=== PATIENT | male | born 2005 | race Caucasian/White ===

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

== ENCOUNTER 2024-01-28 13:44 | Outpatient (CLI) | payer BC, MEDICAID, SELFPAY ==
--- NOTE | 2024-01-28 14:12 | XRR_ITS ---
PROCEDURE INFORMATION: Exam: XR Right Hand Exam date and time: 01/28/2024 2:14 PM Age: 18 years old Clinical indication: Injury or trauma; Other: Jammed hand; Blunt trauma (contusions or hematomas); Injury details: Jammed right hand when doing lina; Additional info: Right hand injury TECHNIQUE: Imaging protocol: Radiologic exam of the right hand. Views: 3 or more views. COMPARISON: CR XR hand RT min 3V* [id number] 11/29/2021 2:46 PM FINDINGS: Bones/joints: There are healed fractures of the 2nd and 3rd metacarpal diaphyses. Joint alignment is normal. Joint spaces are preserved. No acute fracture. Soft tissues: There is diffuse soft tissue swelling in the 2nd finger. XR/XR hand RT min 3V* [id number] IMPRESSION: No acute osseous abnormality.
== END 2024-01-28 13:45 | disposition home or self-care (01) ==
LOC: RAD 13:48
PROVIDERS: PCP Physician Assistant; Visit Provider Registered Nurse Neonatal Intensive Care
DX: S69.91XA Unspecified injury of right wrist, hand and finger(s), initial encounter (principal); W23.0XXA Caught, crushed, jammed, or pinched between moving objects, initial encounter
CPT/HCPCS: 73130

== ENCOUNTER 2024-02-02 21:46 | Emergency (ER) | payer BC, MEDICAID, SELFPAY ==
[2024-02-02 21:57] VITALS: BP 131/91; PULSE 93; RESP 17; TEMP 36.4; O2SAT 98; BMI 27.1
--- NOTE | 2024-02-03 00:34 | XRR_ITS ---
PROCEDURE INFORMATION: Exam: XR Right Hand Exam date and time: 02/03/2024 12:39 AM Age: 18 years old Clinical indication: Fingers; Right; Finger(s); Patient HX: Patient currently on antibiotics for infection of RT thumb. Worsening pain and increased swelling now with purulent discharge. ; Additional info: Thumb infection TECHNIQUE: Imaging protocol: Radiologic exam of the right hand. Views: 3 or more views. COMPARISON: CR XR hand RT min 3V* [id number] 01/28/2024 2:14 PM FINDINGS: Bones/joints: There is loss cortical definition of the distal tuft of the thumb, at the palmar medial aspect, which may represent osteomyelitis. Correlation with contrast-enhanced MRI may be helpful. Sonographic assessment may also be helpful if dedicated musculoskeletal ultrasound service is available. Soft tissues: Mild soft tissue swelling around the thumb with no soft tissue gas. Other findings: Three views submitted. Lateral view of the digits is limited due to overlapping. XR/XR hand RT min 3V* [id number] IMPRESSION: 1. Soft tissue swelling with no soft tissue gas. 2. Loss of cortical definition of the distal tuft of the thumb. Findings may represent osteomyelitis. MRI correlation may be helpful. See discussion above.
--- NOTE | 2024-02-03 00:35 | ED_ITS ---
Documented by User: EUNICE Colvin 02/03/24 01:19 HPI - Skin/Abscess/Foreign Bdy General: Chief complaint: Skin/Abscess/Foreign Body Stated complaint: Right thumb injury Time Seen by Provider: 02/03/24 00:14 Source: patient Mode of arrival: ambulatory Limitations: no limitations History of Present Illness: Patient is a 18-year-old male presents to the emergency department planing of right thumb infection/pain onset greater than a week. Initial injury occurred while patient was woodworking and he hit his right thumb against a piece of wood. He was seen at a walk-in 6 days ago for signs of an infection and was treated with Bactrim. He also had a negative x-ray at that time. He states he has been taking the Bactrim as prescribed, however he has also been soaking it in Epsom salt as well as coating and hydrogen peroxide. He notes that he has not kept it dry for very long at all, and now is reporting increased swelling, pressure, drainage, and pain. He denies any fever, breathing difficulties, chest pains, or any other symptoms. He is up-to-date on his tetanus. Onset (ago): week(s) Tetanus up to date: yes Location: R hand Severity: moderate Pain Consistency: constant Relieving factors: none Context: recent antibiotic Associated symptoms: Reports no associated symptoms; Deny chills, fever(s), nausea or vomiting Treatments prior to arrival: antibiotic Review of Systems General: Reports: 10 or more systems reviewed and unremarkable except in HPI and below Const: Denies: fever(s), chills or fatigue Eyes: Denies: change in vision ENMT: Denies: throat pain, ear or mastoid pain or nasal discharge Card: Denies: chest pain, palpitations, swelling of feet/ankles or lightheadedness Resp: Denies: dyspnea, productive cough or wheezing GI: Denies: abdominal pain, nausea, vomiting, diarrhea or constipation : Denies: flank pain, difficulty urinating, dysuria or urinary frequency Musc: Reports: extremity pain (Right thumb) and extremity swelling (Right thumb); Denies: neck pain, back pain or joint pain Skin/Breast: Reports: erythema (Right thumb); Denies: rash Neuro: Denies: headache(s), numbness in extremities or weakness in extremities PFSH ED PFSH: Medical History (Updated 02/03/24 @ 01:13 by EUNICE Colvin) Nondisp fracture of fifth right metatarsal bone with routine healing Family History Other Diabetes Denies family history of CAD (coronary artery disease) Clotting disorder Dementia Hyperlipidemia Psychiatric illness Chronic kidney disease (CKD) Suicide Anesthesia complication Bleeding disorder Family history of premature coronary artery disease Lung disease Cancer Hypertension Stroke Social History Second hand smoke exposure: No Alcohol intake: never Substance/Drug Use: never Highest education level completed: 10th Grade Physical Exam Const: COMMON NORMALS: no acute distress, patient oriented x3 and no limitations GENERAL APPEARANCE: cooperative, comfortable and well developed ORIENTATION/CONSCIOUSNESS: Yes awake, Yes oriented to person, Yes oriented to place and Yes oriented to time HENMT: COMMON NORMALS: normocephalic, atraumatic and hearing grossly normal bilaterally HEAD & SCALP: normocephalic and atraumatic Eye: COMMON NORMALS: Equal, round and reactive pupils present, EOMs intact bilaterally and conjunctivae normal CONJUNCTIVA: Yes conjunctivae normal PUPIL: Yes Equal, round and reactive pupils present Neck/C-Spine: COMMON NORMALS: full ROM and supple Resp: COMMON NORMALS: normal respiratory effort, No retractions and No use of accessory muscles Extremity: COMMON NORMALS: full ROM NARRATIVE EXTREMITY EXAM: The distal right thumb is moderately edematous with diffuse erythema noted. The thumb is coated in dried ointment. It is significantly tender to the touch, and there is an area of purulent drainage noted just to the right of the nail. He has full range of motion of the thumb, though with pain. At the center of the thumb pad, there is a self-inflicted puncture wound. Neuro: COMMON NORMALS: patient oriented x3, moves all extremities, no focal motor deficits and no sensory deficits noted SENSORIUM/ORIENTATION: Yes oriented to person, Yes oriented to place and Yes oriented to time Psych: COMMON NORMALS: mental status grossly normal and Normal thought process present THOUGHT PROCESS: Normal thought process present Skin: COMMON NORMALS: no rashes or lesions noted GENERAL SKIN EXAM: no rashes or lesions noted Course Vital Signs: Vital signs: Vital Signs Temperature 97.6 F 02/02/24 21:57 Pulse Rate 93 02/02/24 21:57 Respiratory Rate 17 02/02/24 21:57 Blood Pressure 131/91 02/02/24 21:57 Pulse Oximetry 98 02/02/24 21:57 Oxygen Delivery Me thod Room Air 02/02/24 21:57 MDM - Skin/Abscess/Foreign Bdy Medicial Decision Making This patient was seen and evaluated in the emergency department today due to continuing infection to the right thumb. Initially seen at urgent care, he notes worsening of his swelling, redness, and pain despite treatment with Bactr im. He has been exhibiting an appropriate wound care however, as he has been keeping it lubricated and soaked with Epsom salt baths and hydrogen peroxide. He also poked a hole in the finger pad to try to relieve some pressure, where his pain is now primarily at. His vitals are normal, and he is afebrile. Examination revealed a moderately swollen right thumb with obvious signs of infection but no obvious fluctuance or drainable abscess. The self-inflicted puncture wound is protruding tissue, and x-ray of the right thumb showed signs of osteomyelitis at the distal tuft. Patient will be treated as an osteomyelitis and started on p.o. Levaquin with ARPAN follow-up to wound care and orthopedics. Return precautions are given. Lab Data Radiology Impressions Hand X-Ray 02/03/24 00:34 IMPRESSION: 1. Soft tissue swelling with no soft tissue gas. 2. Loss of cortical definition of the distal tuft of the thumb. Findings may represent osteomyelitis. MRI correlation may be helpful. See discussion above. All radiology interpretation(s) finalized by discharge Discharge Plan Discharge Patient Disposition: Home Clinical Impression: Osteomyelitis Qualifiers: Osteomyelitis type: unspecified type Osteomyelitis location: hand Laterality: right Qualified Code(s): M86.9 - Osteomyelitis, unspecified Condition: Stable Prescriptions: New levofloxacin 500 mg tablet 500 mg PO DAILY 14 Days Qty: 14 0RF No Action (DME) Fast Form Cock Up Splint See Rx Instructions .Route .MEDSUPPLY Qty: 1 0RF Rx Instructions: As directed sulfamethoxazole-trimethoprim [Bactrim DS] 800-160 mg tablet 1 tab PO BID 7 Days Qty: 14 0RF Discharge Orders: Discharge ED (Routine); Ordered 02/03/24 Ordered By: Saran Rodriguez Referrals: Halina Gregory PA [Primary Care Provider] - Discharge Diet: Usual diet Discharge Activity: Limit activity as instructed Patient Instructions: Osteomyelitis (ED) Activity Restrictions/Additional Instructions: Levaquin as prescribed. Follow-up with wound care and orthopedics as soon as possible. Return with any new or concerning symptoms. Stand Alone Forms: Work/School Release Coding Level of Care Code ED Optomechanical Engineer for Chg Fwd Documented by User: Daryl Finley DO 02/04/24 06:48 HPI - Skin/Abscess/Foreign Bdy General: Chief complaint: Skin/Abscess/Foreign Body Stated complaint: Right thumb injury Time Seen by Provider: 02/03/24 00:14 PFSH ED PFSH: Medical History (Updated 02/03/24 @ 01:13 by EUNICE Colvin) Nondisp fracture of fifth right metatarsal bone with routine healing Family History Other Diabetes Denies family history of CAD (coronary artery disease) Clotting disorder Dementia Hyperlipidemia Psychiatric illness Chronic kidney disease (CKD) Suicide Anesthesia complication Bleeding disorder Family history of premature coronary artery disease Lung disease Cancer Hypertension Stroke Social History Second hand smoke exposure: No Alcohol intake: never Substance/Drug Use: never Highest education level completed: 10th Grade Course Vital Signs: Vital signs: Vital Signs Temperature 97.6 F 02/02/24 21:57 Pulse Rate 93 02/02/24 21:57 Respiratory Rate 17 02/02/24 21:57 Blood Pressure 131/91 02/02/24 21:57 Pulse Oximetry 98 02/02/24 21:57 Oxygen Delivery Me thod Room Air 02/02/24 21:57 MDM - Skin/Abscess/Foreign Bdy Medicial Decision Making This patient was seen and evaluated in the emergency department today due to continuing infection to the right thumb. Initially seen at urgent care, he notes worsening of his swelling, redness, and pain despite treatment with Bactrim. He has been exhibiting an appropriate wound care however, as he has been keeping it lubricated and soaked with Epsom salt baths and hydrogen peroxide. He also poked a hole in the finger pad to try to relieve some pressure, where his pain is now primarily at. His vitals are normal, and he is afebrile. Examination revealed a moderately swollen right thumb with obvious signs of infection but no obvious fluctuance or drainable abscess. The self- inflicted puncture wound is protruding tissue, and x-ray of the right thumb showed signs of osteomyelitis at the distal tuft. Patient will be treated as an osteomyelitis and started on p.o. Levaquin with ARPAN follow-up to wound care and orthopedics. Return precautions are given. Chart reviewed Lab Data Radiology Impressions Hand X-Ray 02/03/24 00:34 IMPRESSION: 1. Soft tissue swelling with no soft tissue gas. 2. Loss of cortical definition of the distal tuft of the thumb. Findings may represent osteomyelitis. MRI correlation may be helpful. See discussion above. Discharge Plan Discharge Patient Disposition: Home Clinical Impression: Osteomyelitis Qualifiers: Osteomyelitis type: unspecified type Osteomyelitis location: hand Laterality: right Qualified Code(s): M86.9 - Osteomyelitis, unspecified Condition: Stable Prescriptions: New levofloxacin 500 mg tablet 500 mg PO DAILY 14 Days Qty: 14 0RF No Action (DME) Fast Form Cock Up Splint See Rx Instructions .Route .MEDSUPPLY Qty: 1 0RF Rx Instructions: As directed sulfamethoxazole-trimethoprim [Bactrim DS] 800-160 mg tablet 1 tab PO BID 7 Days Qty: 14 0RF Discharge Orders: Discharge ED (Routine); Ordered 02/03/24 Ordered By: Saran Rodriguez Referrals: Halina Gregory PA [Primary Care Provider] - Discharge Diet: Usual diet Discharge Activity: Limit activity as instructed Patient Instructions: Osteomyelitis (ED) Activity Restrictions/Additional Instructions: Levaquin as prescribed. Follow-up with wound care and orthopedics as soon as possible. Return with any new or concerning symptoms. Stand Alone Forms: Work/School Release Coding Level of Care Code ED Optomechanical Engineer for Kasey Martinez
[2024-02-03] MEDS: levoFLOXacin 500 mg Tablet PO ×2 (01:28→01:30)
--- NOTE | 2024-02-04 07:23 | DCPLANNER ---
Message sent to Wound care and Ortho for ARPAN follow up
== END 2024-02-03 01:36 | disposition home or self-care (01) ==
PROVIDERS: Emergency Provider Physician Assistant; PCP Physician Assistant
DX: M86.8X4 Other osteomyelitis, hand (principal)
CPT/HCPCS: 73130; 99283

== ENCOUNTER 2024-02-06 12:20 | Day surgery (SDC) | payer BC, MEDICAID, SELFPAY ==
[2024-02-06] VITALS (11 sets, daily range): BP systolic 107–147; BP diastolic 48–90; PULSE 52–94; RESP 16–20; TEMP 36.1–36.3; O2SAT 96–100; BMI 26.7
[2024-02-06] MEDS: scopolamine 1.5 Patch 1 PATCH TRANSDERMA (12:45)
[2024-02-06] MEDS: sodium chloride 0.9% 1,000 ML 30 ML IV (12:56)
[2024-02-06] MEDS: acetaminophen 1,000 MG/100 ML PIGGYBACK 400 MG IV (12:58)
--- NOTE | 2024-02-06 12:58 | ANES.PREANE2 ---
Pre-Anesthetic Assessment Height/Weight: Height 1.83 m Weight 89.358 kg Temp Pulse Resp BP Pulse Ox O2 Del Method 97.4 F L 94 18 147/82 99 Room Air 02/06/24 12:38 02/06/24 12:38 02/06/24 12:38 02/06/24 12:45 02/06/24 12:38 02/06/24 12:40 Operation Date: 02/06/24 14:05 Proposed Procedures p Incision & Drainage Upper Extremity(Right) - Santana Britt DO Familial anesthetic complications: None Was Beta Corine taken within 24 hours: N/A Was Clonidine taken within 24 hours: N/A Last intake: Intake Last Liquid Date 02/05/24 Last Liquid Time 23:00 Last Solid Date 02/05/24 Last Solid Time 22:00 Social No alcohol and No tobacco former smoker Exam alert, oriented x 3, clear to auscultation bilaterally and regular rate & rhythm Airway Mallampati: Class II Dentition: chipped and full Anesthetic Plan ASA status: 1 Anesthesia: Choice Risk of > 500 ml blood loss (7ml/kg in children): No Medications/Allergies Home Medications Medication Instructions Recorded Confirmed Last Taken Type Fast Form Cock Up Splint #1 ea 10/04/21 02/05/24 Unknown Rx levofloxacin 500 mg tablet 500 mg PO DAILY 2 weeks #14 tabs 02/03/24 02/05/24 02/05/24 Rx Allergies Allergy/AdvReac Type Severity Reaction Status Date / Time No Known Allergies Allergy Verified 02/05/24 16:51 Current Medications Generic Name Dose Route Start Last Admin Trade Name Freq PRN Reason Stop Dose Admin Sodium Chloride 1,000 mls @ 30 mls/hr 02/06/24 12:30 02/06/24 12:56 Sodium Chloride 0.9% IV 02/07/24 12:29 30 mls/hr .Q24H TAWANDA Administration PFSH Anesthesia Medical History (Updated 02/05/24 @ 14:54 by Santana Britt DO) Nondisp fracture of fifth right metatarsal bone with routine healing Family History Other Diabetes Denies family history of CAD (coronary artery disease) Clotting disorder Dementia Hyperlipidemia Psychiatric illness Chronic kidney disease (CKD) Suicide Anesthesia complication Bleeding disorder Family history of premature coronary artery disease Lung disease Cancer Hypertension Stroke Social History (Updated 02/05/24 @ 14:52 by Carmencita Pascual LPN) Smoking and tobacco/nicotine status: former use of tobacco/nicotine Second hand smoke exposure: No Alcohol intake: never Substance/Drug Use: never Highest education level completed: 10th Grade Data Anesthesia Cardiac Studies: No Data to Display
[2024-02-06] MEDS: ketorolac 30 mg/mL INJ IVP (13:02)
--- NOTE | 2024-02-06 14:32 | W.PM.OPSUD ---
Surgery/Procedure H&P Update DATE OF PROCEDURE: February 06, 2024 DATE H&P PERFORMED: 02/05/24 H&P UPDATE INFORMATION: I have reviewed H&P completed within last 30 days, I have examined patient prior to procedure and No changes to prior documentation CHANGES TO PREVIOUS DOCUMENTATION: Right thumb infection (felon with paronychia) PREOP DIAGNOSIS: Right thumb infection felon and paronychia PRIMARY INDICATION FOR PROCEDURE: Right thumb infection (felon and paronychia) PLANNED PROCEDURE: Operation Date: 02/06/24 14:05 Proposed Procedures p Incision & Drainage Upper Extremity(Right) - Santana Britt DO
[2024-02-06] MEDS: ceFAZolin 2,000 MG in sodium chloride 0.9% (plus) 50 ML 100 MG IV (14:42)
[2024-02-06] MEDS: ROPivacaine 0.5% SDV 30 mL 50 MG INJECTION (15:25)
[2024-02-06] MEDS: lidocaine 2% INJ 20 mL 10 ML INJECTION (15:25)
--- NOTE | 2024-02-06 15:50 | P.BOP_ITS ---
Date of Procedure: [February 06, 2024] Surgeon: [Dr. Britt DO] Electrical Assembly Supervisor(s): [Kane Britt PA-C] Procedure(s) performed: [Right thumb incision, irrigation and debridement, [wound 3 cm x 2 cm x 1 cm]] Findings of the procedure(s): [Right thumb infection (felon and paronychia)] Estimated blood loss: [2 ml] Specimen(s) removed: [wound cultures obtained and sent to lab] Post-operative diagnosis: [Right thumb infection (felon and paronychia)]
--- NOTE | 2024-02-06 15:56 | PM.PACU ---
PACU note Narrative: Patient is a 18-year-old male just underwent a right thumb I&D. Patient transferred to PACU in stable condition. Pain is well controlled. Dressing on hand is dry and in place. Patient's fingers are warm and well-perfused. Patient can wiggle fingers. normal cap refill under 2 seconds. Patient has normal elbow range of motion. sensation to hand intact. Exam: awake Disposition: discharged
--- NOTE | 2024-02-06 15:59 | PM.OP ---
Operative Report Date of procedure: February 06, 2024 Pre-op diagnosis: Right thumb felon and paronychia Post-op diagnosis: Same Procedure done: Right thumb incision, irrigation and debridement, [wound 3 cm x 2 cm x 1 cm Specimens removed/disposition: Cultures taken of abscess aerobic and anaerobic of the right thumb finger pulp Surgeon: Santana Britt DO Machine Clothing Worker: Kane Britt PA-C: EUNICE was necessary for assistance in this case with hand positioning to execute the procedure, retraction and protection of neurovascular structures as well as to assist with wound closure and dressing application. Anesthesia: MAC and Local Estimated blood loss: 2mL 35min finger turnicot IV fluids: 900mL Complications: None Findings: See operative report narrative Condition: stable Disposition: same day Brief History: Patient is a 18-year-old male who has a right thumb infection was was sent over from the wound care clinic. Continues to have purulent drainage of the finger pulp consistent with a felon as well as wrapping around into the paronychia. No A1 darleen tenderness or any signs concerning for proximal infection or any signs of flexor tenosynovitis we saw in the clinic setting and talked about treatment options as far as continued nonoperative versus operative invention at this point in time through shared decision-making placement elects proceed with right thumb irrigation and debridement. Patient understands and Zetts procedure risk benefits complication alternatives surgery and through shared decision make elects proceed with surgical intervention all questions answered at this time. Procedure: Patient seen evaluated preoperative holding area. Consent was reviewed and signed with patient. Correct extremity/digit was then correctly marked. Patient was then seen evaluate by anesthesia once cleared for surgery was taken back to the operative suite kept on [facility] armboard applied to the right upper extremity operative arm rinses were well-padded patient appropriate secured to the bed. Patient then subsequently underwent anesthesia per the anesthesia department once properly anesthetized patient had a nonsterile tourniquet applied to the right arm. Patient's right upper extremity was then prepped and draped in standard orthopedic fashion. Final timeout performed. Patient received appropriate preoperative antibiotics. A finger turnicot was then subsequently placed as well as local anesthesia around the right thumb. I then subsequently proceeded with a longitudinal incision directly over the finger pulp midline where patient had a small wound. Sharp scalpel incision was made and immediate purulence was noted as well as significant fatty necrosis of the finger pulp directly down to bone. Cultures were subsequently taken for aerobic and anaerobic and sent for microbiology. The bone was hard and no softening or evidence of osteomyelitis I then subsequently performed a standard I&D of the right thumb and the finger pulp. The tissue was very attenuated and wrapped around the ulnar aspect of the thumb base along the nail as well as tracked into the underneath the eponychial fold as well as underneath the nail as a result I subsequently elected for 2 small eponychial fold incisions and subsequently elected to remove the nail to prevent any harboring bacteria for a full removal of the infection. Once the nail was removed directly underneath the nail was clean but wrapped around on the ulnar aspect there was purulence I then subsequently performed a standard irrigation debridement of the right thumb consisting of 3 cm x 2 cm x 1 cm and debrided this of all skin and fatty tissue fascia with sharp scalpel excision as well as curettage and with rongeur. Thorough irrigation was then performed. There was no proximal tracking into the flexor tendon sheath or up the extensor tendon this was confined to the paronychia and felon. I took this to stable healthy tissue and then subsequently ellipsed out the small areas where wound breakdown had occurred with the open wounds to the lips this size these out to healthy tissue. I then remove the finger turnicot hemostasis was satisfactory bipolar electrocautery thorough irrigation performed and then subsequently closed in standard fashion with interrupted nylon sutures around the skin edges the finger that tied into the matrix that skin was then closed with Monocryl there was no damage to the matrix or the germinal or sterile matrix I then subsequently cut a small piece of Xeroform and placed this underneath the eponychial fold to prevent scarring of the eponychial him. Once skin was closed this was then dressed with Xeroform 4 x 4's ABD Curlex and a soft bulky dressing with an Nando wrap. Patient was then awake from anesthesia and taken to PACU in stable condition. Disposition: Patient taken back in stable condition recovering well will receive appropriate discharge structure as well as antibiotics will continue to monitor cultures and will adjust empiric oral antibiotics if needed. Patient and family understand agree with current plan. All questions answered. Will follow-up in 2 weeks.
[2024-02-06] MEDS: TRAMadol 50 mg Tablet PO (16:49)
--- NOTE | 2024-02-06 17:05 | ANE.PACU2 ---
Inpatient post-anesthesia follow up: Airway intact: Yes Vital signs: Temperature 97 F Pulse Rate 66 Respiratory Rate 18 Blood Pressure 134/73 Pulse Oximetry 100 Oxygen Delivery Me thod Room Air Oxygen Flow Rate Fraction of Inspir ed Oxygen Hydration adequate: Yes Nausea and vomiting: No Pain level: 1 Mental status: Baseline
== END 2024-02-06 17:06 | disposition home or self-care (01) ==
PROVIDERS: PCP Physician Assistant; Visit Provider Student in an Organized Health Care Education/Training Program
PROC: (CPT 11042; principal; 2024-02-06 13:55)
DX: L03.011 Cellulitis of right finger (principal); Z87.891 Personal history of nicotine dependence
CPT/HCPCS: 11042; 11750; 87070; 87075; 87077; 87186; 87205; J0131; J0690; J1885; J2250; J2704; J2795; J3010; J7030

== ENCOUNTER 2024-02-22 09:05 | Outpatient (RCR) | payer BC, MEDICAID, SELFPAY | END 2024-03-11 23:59 | disposition home or self-care (01) | LOC: SOT 09:05 | PROVIDERS: Visit Provider Student in an Organized Health Care Education/Training Program | DX: Z47.89 Encounter for other orthopedic aftercare (principal) | CPT/HCPCS: 97022; 97110; 97140; 97165; 97530; L3925 ==

== ENCOUNTER 2024-03-12 06:00 | Outpatient (RCR) | payer BC, MEDICAID, SELFPAY | END 2024-04-11 23:59 | disposition home or self-care (01) | LOC: SOT 06:00 | PROVIDERS: Visit Provider Student in an Organized Health Care Education/Training Program | DX: Z47.89 Encounter for other orthopedic aftercare (principal) | CPT/HCPCS: 97022; 97110; 97140 ==